=== PATIENT | female | born 1950 | race Native Hawaiian/Other Pacific Islander ===

== ENCOUNTER 2017-12-28 09:55 | Outpatient (CLI) | payer OTHER | END 2017-12-28 23:14 | disposition home or self-care (01) | LOC: RESP 09:55 | DX: R06.02 Shortness of breath (principal) ==

== ENCOUNTER 2018-02-01 09:44 | Outpatient (CLI) | payer OTHER | END 2018-02-01 19:43 | disposition home or self-care (01) | LOC: CT 09:44 | DX: J44.9 Chronic obstructive pulmonary disease, unspecified (principal) ==

== ENCOUNTER 2018-02-26 07:15 | Emergency (ER) | payer OTHER ==
[~2018-02-26] VITALS: Ht 165.1 cm; Wt 72.6 kg
[2018-02-26 07:15] VITALS: TEMP 97.7
[2018-02-26 07:58] LABS: PLATELET COUNT 246 K/uL (152-353)
[2018-02-26 08:01] LABS: POTASSIUM 3.8 mmol/L (3.6-5.2)
[2018-02-26 08:30] VITALS: BP 96/60
== END 2018-02-26 08:35 | disposition home or self-care (01) ==
LOC: ED 07:17
PROVIDERS: Family Medicine
DX: R04.2 Hemoptysis (principal); Z98.890 Other specified postprocedural states
CPT/HCPCS: 36415; 80053; 85027; 96374; 96375; 99284; J2175; J2405

== ENCOUNTER 2018-03-15 08:47 | Outpatient (CLI) | payer OTHER | END 2018-03-15 19:19 | LOC: MAMMO 08:47 | DX: Z12.31 Encounter for screening mammogram for malignant neoplasm of breast (principal) ==

== ENCOUNTER 2018-03-29 09:03 | Outpatient (CLI) | payer OTHER | END 2018-03-29 20:11 | disposition home or self-care (01) | LOC: US 09:03 → MAMMO 04-08 13:42 | DX: R92.8 Other abnormal and inconclusive findings on diagnostic imaging of breast (principal) ==

== ENCOUNTER 2018-09-17 09:02 | Outpatient (CLI) | payer OTHER | END 2018-09-17 19:22 | disposition home or self-care (01) | LOC: CT 09:02 | DX: J44.9 Chronic obstructive pulmonary disease, unspecified (principal) ==

== ENCOUNTER 2019-04-08 08:53 | Outpatient (CLI) | payer OTHER | END 2019-04-08 21:14 | disposition home or self-care (01) | LOC: CT 08:53 | DX: R91.1 Solitary pulmonary nodule (principal) ==

== ENCOUNTER 2020-03-19 10:33 | Observation (INO) | payer OTHER ==
[~2020-03-19] VITALS: Ht 165.1 cm; Wt 70.8 kg
[2020-03-19 11:36] LABS: PLATELET COUNT 230 K/uL (152-353)
[2020-03-19 12:03] LABS: PARTIAL THROMBOPLASTIN TIME 23.2 SECONDS (24.5-33.6)
[2020-03-19 12:09] LABS: POTASSIUM 3.9 mmol/L (3.6-5.2); SODIUM 138 mmol/L (136-145)
[2020-03-19 13:28] VITALS: BP 121/70; TEMP 98.3; Ht 165.1 cm; Wt 70.8 kg
[2020-03-19 16:00] VITALS: BP 109/67; TEMP 97.8
[2020-03-19] MEDS ORDERED: SERT100T PO (17:48)
[2020-03-19] MEDS ORDERED: TRAZ50TA36 PO (17:51)
[2020-03-19] MEDS ORDERED: ALPR0.5T24 PO (17:51)
[2020-03-19] MEDS ORDERED: MELOXICAM7.5 MG (17:52)
[2020-03-19] MEDS ORDERED: ANORO ELLIPTA 61 AER INH (17:53)
[2020-03-19] MEDS ORDERED: EUTHYROX75 MCG PO (17:55)
[2020-03-19] MEDS ORDERED: LOTREL1 CA5 PO (17:59)
[2020-03-19] MEDS ORDERED: EDLUAR10 MG PO (18:05)
[2020-03-19] MEDS ORDERED: REMERON SLTB45 MG PO (18:06)
[2020-03-19 20:00] VITALS: BP 114/58; TEMP 98.6
[2020-03-20] VITALS: BP 135/77; TEMP 98.5
[2020-03-20 04:00] VITALS: BP 140/75; TEMP 98.3
[2020-03-20 04:43] LABS: PLATELET COUNT 225 K/uL (152-353)
[2020-03-20 08:00] VITALS: BP 140/79; TEMP 97.9
[2020-03-20 12:00] VITALS: BP 146/70; TEMP 97.5
== END 2020-03-20 19:10 | disposition home or self-care (01) ==
LOC: MED/SURG 10:33
PROVIDERS: ADMIT Family Medicine
DX: R07.9 Chest pain, unspecified (principal); J44.1 Chronic obstructive pulmonary disease with (acute) exacerbation
CPT/HCPCS: 36415; 80053; 82150; 82550; 83690; 83735; 84100; 84484; 85027; 85610; 85730; 93005; 96374; 99220; G0378; G0379; J1650; J2930

== ENCOUNTER 2022-06-30 09:40 | Outpatient (CLI) | payer OTHER ==
[~2022-06-30 09:40] MED LIST: ALPR0.5T24 PO; ANORO ELLIPTA 61 AER INH; EDLUAR10 MG PO; EUTHYROX75 MCG PO; LOTREL1 CA5 PO; MELOXICAM7.5 MG; REMERON SLTB45 MG PO; SERT100T PO; TRAZ50TA36 PO
== END 2022-06-30 19:24 | disposition home or self-care (01) ==
LOC: MAMMO 09:40
PROVIDERS: ATTEND Family Medicine
DX: Z12.31 Encounter for screening mammogram for malignant neoplasm of breast (principal)

== ENCOUNTER 2023-02-07 10:04 | Observation (INO) | payer OTHER ==
[~2023-02-07] VITALS: Ht 165.1 cm; Wt 53.7 kg
[2023-02-07 10:04] VITALS: TEMP 99.3
[2023-02-07 10:24] LABS: PLATELET COUNT 195 K/uL (152-353)
[2023-02-07 15:12] VITALS: BP 130/65; TEMP 97.6; Ht 165.1 cm; Wt 53.7 kg
[2023-02-07 19:43] VITALS: BP 114/65; TEMP 98.3
[2023-02-07 23:48] VITALS: BP 123/61; TEMP 98.5
[2023-02-08 03:38] VITALS: BP 130/60; TEMP 98.6
[2023-02-08 04:42] LABS: PLATELET COUNT 185 K/uL (152-353)
[2023-02-08 04:54] LABS: POTASSIUM 3.2 mmol/L (3.6-5.2)
[2023-02-08 08:00] VITALS: BP 128/61; TEMP 98.3
[2023-02-08 12:00] VITALS: BP 128/62; TEMP 98.5
== END 2023-02-08 15:05 | disposition home health service (06) ==
LOC: ED 10:04 → MED/SURG 11:14
PROVIDERS: Family Medicine; ADMIT Internal Medicine Endocrinology, Diabetes & Metabolism; ATTEND Internal Medicine Endocrinology, Diabetes & Metabolism
DX: J44.1 Chronic obstructive pulmonary disease with (acute) exacerbation (principal); R06.02 Shortness of breath; R07.89 Other chest pain; I10 Essential (primary) hypertension; E03.8 Other specified hypothyroidism; F41.8 Other specified anxiety disorders; G47.00 Insomnia, unspecified; R91.1 Solitary pulmonary nodule; Z72.0 Tobacco use
CPT/HCPCS: 36415; 80048; 80053; 83690; 83880; 84484; 85027; 85379; 93005; 94664; 94760; 96367; 96372; 96374; 96375; 96376; 99221; 99284; G0378; J0456; J1650; J2920; J2930; Q9963

== ENCOUNTER 2023-03-09 15:04 | Observation (INO) | payer OTHER ==
[~2023-03-09] VITALS: Ht 165.1 cm; Wt 50.5 kg
[2023-03-09] VITALS (16 sets, daily range): BP systolic 85–105; BP diastolic 47–59; TEMP 98
[~2023-03-09 15:04] MED LIST changes: -ALPR0.5T24 PO; +ALPRAZOLAM PO
[2023-03-09 17:51] LABS: PLATELET COUNT 258 K/uL (152-353)
[2023-03-10] VITALS: BP 92/42; BP 97/42; TEMP 98.2; TEMP 98.3
[2023-03-10 02:17] LABS: PLATELET COUNT 233 K/uL (152-353)
[2023-03-10 02:31] LABS: POTASSIUM 3.3 mmol/L (3.6-5.2)
[2023-03-10 02:48] VITALS: BP 105/52; TEMP 98.2; Ht 165.1 cm; Wt 50.5 kg
[2023-03-10 03:40] VITALS: BP 92/42; TEMP 98.3
[2023-03-10 08:00] VITALS: BP 92/54; TEMP 99.8
[2023-03-10] MEDS ORDERED: TRELEGY ELLIPTA1 AER INH (09:56)
[2023-03-10] MEDS ORDERED: SERT100T PO (09:57)
[2023-03-10] MEDS ORDERED: ALBUTEROL0.083 % INH (09:58)
[2023-03-10] MEDS ORDERED: MIRTAZAPINE PO (09:58)
[2023-03-10] MEDS ORDERED: GABA100C2 PO (09:59)
[2023-03-10 12:00] VITALS: BP 112/54; TEMP 98.9
== END 2023-03-10 15:50 | disposition home or self-care (01) ==
LOC: ED 15:04 → MED/SURG 19:45
PROVIDERS: ADMIT Nurse Practitioner Family; ATTEND Family Medicine
DX: E86.0 Dehydration (principal); J18.9 Pneumonia, unspecified organism; I95.1 Orthostatic hypotension; J44.1 Chronic obstructive pulmonary disease with (acute) exacerbation; F03.90 Unspecified dementia, unspecified severity, without behavioral disturbance, psychotic disturbance, mood disturbance, and anxiety; R53.81 Other malaise; E03.8 Other specified hypothyroidism; Z99.81 Dependence on supplemental oxygen; Z87.891 Personal history of nicotine dependence
CPT/HCPCS: 36415; 80048; 80053; 83605; 83735; 85027; 87040; 93005; 94664; 94760; 96360; 96361; 96367; 96375; 99221; 99284; G0378; J0456; J2930